=== PATIENT | male | born 1975 | race Caucasian/White ===

== ENCOUNTER 2016-08-21 07:57 | Emergency (ER) | payer MEDICAID, OTHER ==
--- NOTE | 2016-08-21 08:23 | ER Document Report ---
ED GI/ - General TRAVEL OUTSIDE OF THE [place] IN LAST 30 DAYS: No <NORIS BLOUNT - Last Filed: 08/21/16 08:23> <BARBIE VALDIVIA - Last Filed: 08/21/16 11:26> - General Chief Complaint: Urinary Frequency Stated Complaint: URINARY SYMPTOMS Time Seen by Provider: 08/21/16 08:23 - HPI Notes: 08/21/16 08:57 Patient is a 41-year-old male presents to the ED complaining of bladder pressure , urinary frequency, voiding small amounts that began this morning. He is still eating and drinking without any problems. He is having regular bowel movements. He has not had any burning, hematuria, discharge, flank pain. His last sexual activity was 3 years ago. Denies any fever, URI, sore throat, chest pain, palpitations, syncope, shortness of breath, cough, wheeze, dyspnea, abdominal pain, nausea, vomiting, diarrhea, rash. Denies recent illness. He takes Prozac and lisinopril daily. He is allergic to penicillins because of swelling and respiratory compromise. No previous issues or surgeries. ( BARBIE VALDIVIA) - Related Data Allergies/Adverse Reactions: diazepam [From Valium] Allergy (Verified 11/05/14 20:31) anger Penicillins Allergy (Verified 11/05/14 20:31) Anaphylaxis droperidol [Droperidol] Adverse Reaction (Verified 11/05/14 20:31) Change in behavior Past Medical History - Social History Smoking Status: Current Every Day Smoker Chew tobacco use (# tins/day): No Frequency of alcohol use: None Drug Abuse: None Family History: CAD - grandfather of chf at age 47., DM, Other - PENICILLIN ALLERGY. PT HAS HAD AMOXIL W/O PROBLEMS. Patient has suicidal ideation: No Patient has homicidal ideation: No Pulmonary Medical History: Reports: Hx Pneumonia Renal/ Medical History: Denies: Hx Peritoneal Dialysis Musculoskeltal Medical History: Reports Hx Musculoskeletal Deformity, Reports Hx Musculoskeletal Trauma Psychiatric Medical History: Reports: Hx Bipolar Disorder, Hx Depression Past Surgical History: Reports: Hx Appendectomy, Hx Orthopedic Surgery - L knee , Hx Tonsillectomy - Immunizations Immunizations up to date: Yes Hx Diphtheria, Pertussis, Tetanus Vaccination: Yes - 2009 <NORIS BLOUNT - Last Filed: 08/21/16 08:23> - Social History Smoking Status: Unknown if Ever Smoked <BARBIE VALDIVIA - Last Filed: 08/21/16 11:26> Review of Systems <NORIS BLOUNT - Last Filed: 08/21/16 08:23> <SHEABARBIE - Last Filed: 08/21/16 11:26> - Review of Systems Notes: REVIEW OF SYSTEMS: CONSTITUTIONAL : Denies fever, chills, or sweats. Denies recent illness. EENT: Denies eye, ear, throat, or mouth pain or symptoms. Denies nasal or sinus congestion or discharge. Denies throat, tongue, or mouth swelling or difficulty swallowing. CARDIOVASCULAR: Denies chest pain. Denies palpitations or racing or irregular heart beat. Denies ankle edema. RESPIRATORY: Denies cough, cold, or chest congestion. Denies shortness of breath, difficulty breathing, or wheezing. GASTROINTESTINAL: Denies abdominal pain or distention. Denies nausea, vomiting , or diarrhea. Denies blood in vomitus, stools, or per rectum. Denies black, tarry stools. Denies constipation. GENITOURINARY: see hpi MUSCULOSKELETAL: Denies back or neck pain or stiffness. Denies joint pain or swelling. SKIN: Denies rash, lesions or sores. NEUROLOGICAL: denies SCHWARTZ ALL OTHER SYSTEMS REVIEWED AND NEGATIVE. Dictation was performed using [employer] voice recognition software (BARBIE VALDIVIA) Physical Exam <NORIS BLOUNT - Last Filed: 08/21/16 08:23> <SHEABARBIE - Last Filed: 08/21/16 11:26> - Vital signs Vitals: Temp Pulse Resp BP Pulse Ox 97.9 F 81 14 119/82 100 08/21/16 08:02 08/21/16 08:02 08/21/16 08:02 08/21/16 08:02 08/21/16 08:02 Notes: PHYSICAL EXAMINATION: GENERAL: Well-appearing, well-nourished and in no acute distress. ENT: oropharynx clear without exudates. No tonsilar hypertrophy or erythema. NECK: Normal range of motion, supple without lymphadenopathy. No rigidity. LUNGS: Breath sounds clear to auscultation bilaterally and equal. No wheezes rales or rhonchi. HEART: Regular rate and rhythm without murmurs, rubs, gallops. ABDOMEN: Soft, nontender, nondistended abdomen. No guarding, no rebound. No masses appreciated. Normal bowel sounds present. No CVA tenderness bilaterally. KAREN negative for any prostate tenderness/bogginess/mass. No pulsatile mass. Extremities: No cyanosis, clubbing, or edema b/l. Peripheral pulses 2+. Capillary refill less than 3 seconds. NEUROLOGICAL:Normal speech, normal gait. Normal sensory, motor exams PSYCH: Normal mood, normal affect. SKIN: Warm, Dry, normal turgor, no rashes or lesions noted. (BARBIE VALDIVIA) Course <NORIS BLOUNT - Last Filed: 08/21/16 08:23> - Laboratory Result Diagrams: 08/21/16 09:40 08/21/16 09:40 <BARBIE VALDIVIA - Last Filed: 08/21/16 11:26> - Re-evaluation Re-evalutation: 08/21/16 09:02 Pt is an afebrile, well-hydrated, 41yo male who presents with urinary frequency NOS. Vitals are stable. PE otherwise unremarkable. UA showed glucose. Urine GC/Chlam negative. CBC, CMP, and accucheck were unremarkable. 1L NS given today. Pt states symptoms have improved and he is not urinating as often. Advised to avoid high amounts of potassium/calcium in diet (very mildly elevated - see labs). Conservative measures for symptoms as reviewed. Recheck with PCM in 2-3 days, consider consult with Urology. Return to the ED with any worsening /concerning symptoms. Pt in agreement. (BARBIE VALDIVIA) - Vital Signs Vital signs: Temp Pulse Resp BP Pulse Ox 97.9 F 81 14 119/82 100 08/21/16 08:02 08/21/16 08:02 08/21/16 08:02 08/21/16 08:02 08/21/16 08:02 - Laboratory Laboratory results interpreted by me: 08/21/16 08/21/16 08:34 09:40 Potassium 5.2 H Glucose 74 L Calcium 10.3 H Urine Glucose (UA) >=500 H Urine Ascorbic Acid 20 H Discharge <NORIS BLOUNT - Last Filed: 08/21/16 08:23> <BARBIE VALDIVIA - Last Filed: 08/21/16 11:26> - Discharge Clinical Impression: Urinary frequency Condition: Stable Disposition: HOME, SELF-CARE Additional Instructions: Push fluids Tylenol/ibuprofen as needed F/u with your PCM in 2-3 days for a recheck Consider consult with a Urologist for ongoing/worsening symptoms. Return to the ED with any worsening symptoms and/or development of fever, headache, chest pain, palpitations, syncope, shortness of breath, trouble breathing, abdominal pain, n/v/d, blood in stool/urine, urinary retention, muscle weakness/paralysis, or other worsening symptoms that are concerning to you. Referrals: JACLYN RENAE DO [Primary Care Provider] - Follow up as needed
[2016-08-21 08:58] LABS: APPEARANCE,URINE CLOUDY; BILIRUBIN,URINE NEGATIVE (NEGATIVE); GLUCOSE, URINE >=500 mg/dL (NEGATIVE); KETONES,URINE NEGATIVE (NEGATIVE); LEUKOCYTE ESTERASE,URINE NEGATIVE (NEGATIVE); NITRITE,URINE NEGATIVE (NEGATIVE); PROTEIN,URINE NEGATIVE (NEGATIVE); URINE SPECIFIC GRAVITY 1.007; UROBILINOGEN,URINE NEGATIVE mg/dL (<2.0)
[2016-08-21] MEDS ORDERED: NORMAL SALINE 1000 ML 1,000 ML IV ONE (09:24)
[2016-08-21 10:03] LABS: ABSOLUTE BASOPHILS # (AUTO) 0.1 10^3/uL (0.0-0.2); ABSOLUTE EOSINOPHILS # (AUTO) 0.1 10^3/uL (0.0-0.6); ABSOLUTE LYMPHOCYTES (AUTO) 1.7 10^3/uL (0.5-4.7); ABSOLUTE MONOCYTES (AUTO) 0.7 10^3/uL (0.1-1.4); ABSOLUTE NEUT (AUTO) 5.2 10^3/uL (1.7-8.2); BASOPHILS % (AUTO) 1.2 % (0-2); EOSINOPHILS % (AUTO) 1.5 % (0-6); HEMATOCRIT 45.5 % (37.9-51.0); HEMOGLOBIN 15.1 g/dL (13.5-17.0); HGB HCT DIFFERENCE -0.2; LYMPHOCYTES % (AUTO) 21.5 % (13-45); MEAN CORPUSCULAR HEMOGLOBIN 28.7 pg (27.0-33.4); MEAN CORPUSCULAR HGB CONC 33.1 g/dL (32.0-36.0); MEAN CORPUSCULAR VOLUME 87 fl (80-97); MONOCYTES % (AUTO) 8.8 % (3-13); RED BLOOD COUNT 5.24 10^6/uL (4.35-5.55); RED CELL DISTRIBUTION WIDTH 13.2 % (11.5-14.0); WHITE BLOOD COUNT 7.8 10^3/uL (4.0-10.5)
[2016-08-21 10:20] LABS: ALANINE AMINOTRANSFERASE 37 U/L (21-72); ALBUMIN 4.9 g/dL (3.5-5.0); ALKALINE PHOSPHATASE 65 U/L (38-126); ANION GAP 12 (5-19); ASPARTATE AMINO TRANSFERASE 28 U/L (17-59); BILIRUBIN,DIRECT 0.3 mg/dL (0.0-0.4); BILIRUBIN,TOTAL 0.5 mg/dL (0.2-1.3); BLOOD UREA NITROGEN 14 mg/dL (7-20); CALCIUM 10.3 mg/dL (8.4-10.2); CARBON DIOXIDE 26 mmol/L (22-30); CHLORIDE 104 mmol/L (98-107); CREATININE RESULT 0.88 mg/dL (0.52-1.25); GLUCOSE 74 mg/dL (75-110); POTASSIUM 5.2 mmol/L (3.6-5.0); SODIUM 141.6 mmol/L (137-145); TOTAL PROTEIN 7.8 g/dL (6.3-8.2)
[2016-08-21 10:28] LABS: CHLAM PCR NOT DETECTED (NOT DETECT)
[2016-08-21 11:43] VITALS: BP 108/70
== END 2016-08-21 11:34 | disposition home or self-care (01) ==
LOC: ER 07:57
DX: R35.0 Frequency of micturition (principal); F17.200 Nicotine dependence, unspecified, uncomplicated
CPT/HCPCS: 99283; 36415; 82962; 85025; 80053; 81001; 87491; 87591; J7030

== ENCOUNTER 2017-02-09 09:28 | Emergency (ER) | payer OTHER ==
[2017-02-09 10:07] LABS: ABSOLUTE BASOPHILS # (AUTO) 0.1 10^3/uL (0.0-0.2); ABSOLUTE EOSINOPHILS # (AUTO) 0.1 10^3/uL (0.0-0.6); ABSOLUTE LYMPHOCYTES (AUTO) 1.6 10^3/uL (0.5-4.7); ABSOLUTE MONOCYTES (AUTO) 0.6 10^3/uL (0.1-1.4); ABSOLUTE NEUT (AUTO) 4.7 10^3/uL (1.7-8.2); EOSINOPHILS % (AUTO) 2.1 % (0-6); HEMATOCRIT 45.8 % (37.9-51.0); HEMOGLOBIN 15.4 g/dL (13.5-17.0); HGB HCT DIFFERENCE 0.4; LYMPHOCYTES % (AUTO) 22.4 % (13-45); MEAN CORPUSCULAR HEMOGLOBIN 29.2 pg (27.0-33.4); MEAN CORPUSCULAR HGB CONC 33.8 g/dL (32.0-36.0); MEAN CORPUSCULAR VOLUME 87 fl (80-97); MONOCYTES % (AUTO) 8.4 % (3-13); RED BLOOD COUNT 5.29 10^6/uL (4.35-5.55); SEGMENTED NEUTROPHILS % (AUTO) 66.1 % (42-78); WHITE BLOOD COUNT 7.1 10^3/uL (4.0-10.5)
[2017-02-09] MEDS ORDERED: METOPROLOL TARTRATE 25 MG TABLET PO ONE (10:20)
--- NOTE | 2017-02-09 10:20 | ER Document Report ---
ED General - General Chief Complaint: Chest Pain Stated Complaint: HEADACHE, POSSIBLE PALPITATIONS Time Seen by Provider: 02/09/17 10:04 Mode of Arrival: Ambulatory Information source: Patient Notes: This is a 41-year-old man with a history of hypertension, depression, bipolar affective disorder and PTSD. He has been evaluated by cardiology in the past for palpitations and presents to the ER with an increase in palpitations over the last several days. The patient has previously been on lisinopril but is out for the past month. His next appointment at the [facility] is in March. He has had a stress test before (which was reported as normal) and a Holter showing sinus tachycardia. He does report that he drinks a lot of energy drinks as well as blue Mountain Dew (a lot of caffeine), monsters and red ball. He only smokes 1-2 cigarettes a day. He does not drink alcohol. He denies any drug use. TRAVEL OUTSIDE OF THE [place] IN LAST 30 DAYS: No - HPI Onset: Last week Onset/Duration: Gradual Quality of pain: No pain Severity: None Pain Level: Denies Associated symptoms: denies: Chest pain, Fever, Shortness of breath Exacerbated by: Denies Relieved by: Denies Similar symptoms previously: Yes Recently seen / treated by doctor: No - Related Data Allergies/Adverse Reactions: diazepam [From Valium] Allergy (Verified 02/09/17 09:31) anger Penicillins Allergy (Verified 02/09/17 09:31) Anaphylaxis droperidol [Droperidol] Adverse Reaction (Verified 02/09/17 09:31) Change in behavior Past Medical History - General Information source: Patient - Social History Smoking Status: Current Some Day Smoker Cigarette use (# per day): Yes - Only 1-2 cigarettes a day Chew tobacco use (# tins/day): No Frequency of alcohol use: None Drug Abuse: None Lives with: Family Family History: CAD - grandfather of chf at age 47., DM, Other - PENICILLIN ALLERGY. PT HAS HAD AMOXIL W/O PROBLEMS. Patient has suicidal ideation: No Patient has homicidal ideation: No - Past Medical History Cardiac Medical History: Reports: Hx Hypertension Pulmonary Medical History: Reports: Hx Pneumonia Renal/ Medical History: Denies: Hx Peritoneal Dialysis Musculoskeltal Medical History: Reports Hx Musculoskeletal Deformity, Reports Hx Musculoskeletal Trauma Psychiatric Medical History: Reports: Hx Bipolar Disorder, Hx Depression Past Surgical History: Reports: Hx Appendectomy, Hx Orthopedic Surgery - L knee , Hx Tonsillectomy - Immunizations Immunizations up to date: Yes Hx Diphtheria, Pertussis, Tetanus Vaccination: Yes - 2009 Review of Systems - Review of Systems Constitutional: denies: Chills, Fever EENT: No symptoms reported Cardiovascular: See HPI Respiratory: No symptoms reported Gastrointestinal: No symptoms reported Genitourinary: No symptoms reported Male Genitourinary: No symptoms reported Musculoskeletal: No symptoms reported Skin: No symptoms reported Hematologic/Lymphatic: No symptoms reported Neurological/Psychological: No symptoms reported Physical Exam - Vital signs Vitals: Temp Pulse Resp BP Pulse Ox 98.6 F 84 16 130/93 H 99 02/09/17 09:41 02/09/17 09:41 02/09/17 09:41 02/09/17 09:41 02/09/17 09:41 Notes: Physical exam: GENERAL: 41-year-old man, alert and oriented 3, no acute distress HEAD: Atraumatic, normocephalic. EYES: Pupils equal round and reactive to light, extraocular movements intact, sclera anicteric, conjunctiva are normal. ENT: TMs normal, nares patent, oropharynx clear without exudates. Moist mucous membranes. NECK: Normal range of motion, supple without obvious mass or JVD. LUNGS: Breath sounds clear to auscultation bilaterally and equal. No wheezes rales or rhonchi. HEART: Regular rate and rhythm without murmurs, rubs or gallops. ABDOMEN: Soft, normoactive bowel sounds. No tenderness to palpation. No guarding, no rebound. No masses appreciated. EXTREMITIES: Normal range of motion, no pitting or edema. No clubbing or cyanosis. NEUROLOGICAL: Cranial nerves II through XII grossly intact. Normal speech, moving all extremities. PSYCH: Normal mood, normal affect. SKIN: Warm, Dry, normal turgor, no rashes or lesions noted. Course - Vital Signs Vital signs: Temp Pulse Resp BP Pulse Ox 98.6 F 84 20 121/76 96 02/09/17 09:41 02/09/17 09:41 02/09/17 12:02 02/09/17 12:02 02/09/17 12:02 - Laboratory Result Diagrams: 02/09/17 09:56 02/09/17 09:56 Laboratory results interpreted by me: 02/09/17 09:56 Sodium 146.4 H - Diagnostic Test Radiology reviewed: Image reviewed, Reports reviewed - Test x-ray shows no infiltrates or effusions - EKG Interpretation by Me Rate: Normal Rhythm: NSR - EKG shows normal sinus rhythm with a ventricular rate of 68, no acute ST-T wave changes Discharge - Discharge Clinical Impression: Palpitations Condition: Stable Disposition: HOME, SELF-CARE Instructions: Palpitations (Irregular or Rapid Heartrate) ([facility]) Additional Instructions: Thank you for choosing [facility] for your care. The examination and treatment you have received in the Emergency Department today has been rendered on an emergency basis only and is not intended to be a substitute for complete medical care. You should contact your follow-up physician as it is important that he or she examine you for any new or remaining problems. If given a copy of any lab tests or radiology reports, please bring them with you when you see your physician. If your problem worsens or new symptoms appear and you are unable to arrange prompt follow-up care, return to the Emergency Department. Specific signs to look out for: Feeling faint, worsening palpitations or any concerns or getting worse. Any other instructions: By the metoprolol: Half tablet twice daily. Follow-up with your primary care physician as planned in March. Bring a copy of today's labs and x-ray report with you when you go. As we discussed, trying cut down on the caffeine intake. Prescriptions: Metoprolol Tartrate [Lopressor 25 mg Tablet] 12.5 mg PO Q12 #90 tab Referrals: JACLYN RENAE DO [Primary Care Provider] - Follow up as needed
[2017-02-09 10:41] LABS: ALANINE AMINOTRANSFERASE 57 U/L (21-72); ALKALINE PHOSPHATASE 67 U/L (38-126); ANION GAP 13 (5-19); ASPARTATE AMINO TRANSFERASE 27 U/L (17-59); BILIRUBIN,DIRECT 0.2 mg/dL (0.0-0.4); BILIRUBIN,TOTAL 0.4 mg/dL (0.2-1.3); BLOOD UREA NITROGEN 17 mg/dL (7-20); CALCIUM 10.1 mg/dL (8.4-10.2); CARBON DIOXIDE 26 mmol/L (22-30); CHLORIDE 107 mmol/L (98-107); CREATINE KINASE 140 U/L (55-170); CREATININE RESULT 0.95 mg/dL (0.52-1.25); GLUCOSE 99 mg/dL (75-110); POTASSIUM 4.9 mmol/L (3.6-5.0); SODIUM 146.4 mmol/L (137-145); TOTAL PROTEIN 7.5 g/dL (6.3-8.2)
[2017-02-09 10:53] LABS: CREATINE KINASE MB 1.44 ng/mL (<4.55)
[2017-02-09 10:54] LABS: TROPONIN I < 0.012 ng/mL
[2017-02-09 11:12] LABS: THYROID STIMULATING HORMONE 1.39 uIU/mL (0.47-4.68)
--- NOTE | 2017-02-09 11:30 | RADIOLOGY REPORT (SQ) ---
EXAM DESCRIPTION: CHEST PA/LAT COMPLETED DATE/TIME: 02/09/2017 10:54 am REASON FOR STUDY: palpitations COMPARISON: Two-view chest 11/05/2014 EXAM PARAMETERS: NUMBER OF VIEWS: two views TECHNIQUE: Digital Frontal and Lateral radiographic views of the chest acquired. RADIATION DOSE: NA LIMITATIONS: EKG leads over the chest FINDINGS: LUNGS AND PLEURA: No opacities, masses or pneumothorax. No pleural effusion. MEDIASTINUM AND HILAR STRUCTURES: No masses or contour abnormalities. HEART AND VASCULAR STRUCTURES: Heart normal size. No evidence for failure. BONES: No acute findings. HARDWARE: None in the chest. OTHER: No other significant finding. IMPRESSION: NO SIGNIFICANT RADIOGRAPHIC FINDING IN THE CHEST. TECHNICAL DOCUMENTATION: JOB ID: [id number] Where- All Rights Reserved
--- NOTE | 2017-02-09 11:45 | EKG REPORT ---
SEVERITY:- NORMAL ECG - SINUS RHYTHM : Confirmed by: Ramona Orosco 09-Feb-2017 11:45:13
[2017-02-09 12:08] VITALS: BP 121/76
== END 2017-02-09 12:25 | disposition home or self-care (01) ==
LOC: ER 09:28
DX: R00.2 Palpitations (principal); R07.9 Chest pain, unspecified; R51 Headache; I10 Essential (primary) hypertension; F32.9 Major depressive disorder, single episode, unspecified; F31.9 Bipolar disorder, unspecified; F43.10 Post-traumatic stress disorder, unspecified; Z79.899 Other long term (current) drug therapy; F17.210 Nicotine dependence, cigarettes, uncomplicated
CPT/HCPCS: 36415; 71020; 80053; 82550; 82553; 84439; 84443; 84484; 85025; 93005; 93010; 99285

== ENCOUNTER 2017-05-20 10:38 | Emergency (ER) | payer OTHER ==
[2017-05-20] MEDS ORDERED: METOCLOPRAMIDE HCL INJ/PF 10 MG/2 ML SDV IV ONE (11:31)
[2017-05-20] MEDS ORDERED: DIPHENHYDRAMINE HCL 50 MG/ML VIAL IV ONE (11:31)
[2017-05-20] MEDS ORDERED: NORMAL SALINE 1000 ML 1,000 ML IV ONE (11:32)
--- NOTE | 2017-05-20 11:33 | ER Document Report ---
ED Medical Screen (RME) - General Chief Complaint: Headache Stated Complaint: HEADACHE Time Seen by Provider: 05/20/17 11:27 Notes: RME DISCLOSURE I have seen this patient as part of a Rapid Medical Evaluation and, if applicable, placed any initially appropriate orders. The patient will be seen and fully evaluated, including a full history and physical exam, by a provider ( in Main ED or Fast Track) when a room becomes available. 41-year-old male here with complaints of bilateral headache lightheadedness ongoing for the past 1 hour. Headache was gradual onset progressively worsening. It is worse with standing up but not worse with light or sound exposure. He denies any numbness tingling weakness vision change nausea vomiting. He has not taken anything for the pain. TRAVEL OUTSIDE OF THE [place] IN LAST 30 DAYS: No - Related Data Allergies/Adverse Reactions: diazepam [From Valium] Allergy (Verified 05/20/17 10:41) anger Penicillins Allergy (Verified 05/20/17 10:41) Anaphylaxis droperidol [Droperidol] Adverse Reaction (Verified 05/20/17 10:41) Change in behavior Past Medical History - Past Medical History Cardiac Medical History: Reports: Hx Hypertension Pulmonary Medical History: Reports: Hx Pneumonia Renal/ Medical History: Denies: Hx Peritoneal Dialysis Musculoskeltal Medical History: Reports Hx Musculoskeletal Deformity, Reports Hx Musculoskeletal Trauma Psychiatric Medical History: Reports: Hx Bipolar Disorder, Hx Depression Past Surgical History: Reports: Hx Appendectomy, Hx Orthopedic Surgery - L knee , Hx Tonsillectomy - Immunizations Immunizations up to date: Yes Hx Diphtheria, Pertussis, Tetanus Vaccination: Yes - 2009 Physical Exam - Vital signs Vitals: Temp Pulse Resp BP Pulse Ox 98.2 F 69 16 130/91 H 98 05/20/17 10:44 05/20/17 10:44 05/20/17 10:44 05/20/17 10:44 05/20/17 10:44 Course - Vital Signs Vital signs: Temp Pulse Resp BP Pulse Ox 98.2 F 69 16 130/91 H 98 05/20/17 10:44 05/20/17 10:44 05/20/17 10:44 05/20/17 10:44 05/20/17 10:44
--- NOTE | 2017-05-20 12:19 | RADIOLOGY REPORT (SQ) ---
EXAM DESCRIPTION: CT HEAD WITHOUT COMPLETED DATE/TIME: 05/20/2017 12:12 pm REASON FOR STUDY: headache lightheaded; eval bleed tumor COMPARISON: None. TECHNIQUE: Axial images acquired through the brain without intravenous contrast. Images reviewed wi th bone, brain and subdural windows. Images stored on PACS. All CT scanners at this facility use dose modulation, iterative reconstruction, and/or weight based d osing when appropriate to reduce radiation dose to as low as reasonably achievable (ALARA). [facility]: Dose Right [facility]: CareDose [facility]: Dose Right [facility]: Teradose 4D [facility]: R&V RADIATION DOSE: CT Rad equipment meets quality standard of care and radiation dose reduction techniq ues were employed. CTDIvol: 64.6 mGy. DLP: 1163 mGy-cm. mGy. LIMITATIONS: None. FINDINGS: VENTRICLES: Normal size and contour. CEREBRUM: No masses. No hemorrhage. No midline shift. No evidence for acute infarction. Normal gra y/white matter differentiation. No areas of low density in the white matter. CEREBELLUM: No masses. No hemorrhage. No alteration of density. No evidence for acute infarction. EXTRAAXIAL SPACES: No fluid collections. No masses. ORBITS AND GLOBE: No intra- or extraconal masses. Normal contour of globe without masses. CALVARIUM: No fracture. PARANASAL SINUSES: Fluid left maxillary sinus. SOFT TISSUES: No mass or hematoma. OTHER: No other significant finding. IMPRESSION: NORMAL BRAIN CT WITHOUT CONTRAST. EVIDENCE OF ACUTE STROKE: NO. COMMENT: Quality ID # [id number]: Final reports with documentation of one or more dose reduction techniques (e.g., Automated exposure control, adjustment of the mA and/or kV according to patient size, use of iterative reconstruction technique) TECHNICAL DOCUMENTATION: JOB ID: [id number] [employer]- All Rights Reserved Reading location - IP/workstation name: [email or web address]-[email or web address]
--- NOTE | 2017-05-20 12:55 | ER Document Report ---
ED Headache - General Chief Complaint: Headache Stated Complaint: HEADACHE Time Seen by Provider: 05/20/17 11:27 Mode of Arrival: Ambulatory Information source: Patient TRAVEL OUTSIDE OF THE [place] IN LAST 30 DAYS: No - HPI Patient complains to provider of: Headache Notes: Patient is here with complaints of right-sided headache. States that it started approximately 20 minutes prior to his arrival here. Was not a sudden onset thunderclap type headache. It gradually worsened over time. He has a history of headaches in the past. He is on a blood thinners. He denies any recent head injuries or falls. He denies any associated nausea, vomiting, diarrhea. No unilateral numbness, tingling, weakness. States that pain was worse with light. He denies any chest pain or shortness of breath. No abdominal pain. No rash. No neck stiffness. No fever. States he was felt a little lightheaded with it as well. No other complaints at this time. - Related Data Allergies/Adverse Reactions: diazepam [From Valium] Allergy (Verified 05/20/17 10:41) anger Penicillins Allergy (Verified 05/20/17 10:41) Anaphylaxis droperidol [Droperidol] Adverse Reaction (Verified 05/20/17 10:41) Change in behavior Past Medical History - Social History Smoking Status: Former Smoker Chew tobacco use (# tins/day): No Frequency of alcohol use: Rare Drug Abuse: None Family History: CAD - grandfather of chf at age 47., DM, Other - PENICILLIN ALLERGY. PT HAS HAD AMOXIL W/O PROBLEMS. Patient has suicidal ideation: No Patient has homicidal ideation: No - Past Medical History Cardiac Medical History: Reports: Hx Hypertension Pulmonary Medical History: Reports: Hx Pneumonia Renal/ Medical History: Denies: Hx Peritoneal Dialysis Musculoskeltal Medical History: Reports Hx Musculoskeletal Deformity, Reports Hx Musculoskeletal Trauma Psychiatric Medical History: Reports: Hx Bipolar Disorder, Hx Depression Past Surgical History: Reports: Hx Appendectomy, Hx Orthopedic Surgery - L knee , Hx Tonsillectomy - Immunizations Immunizations up to date: Yes Hx Diphtheria, Pertussis, Tetanus Vaccination: Yes - 2009 Review of Systems - Review of Systems -: Yes All other systems reviewed and negative Physical Exam - Vital signs Vitals: Temp Pulse Resp BP Pulse Ox 98.2 F 69 16 130/91 H 98 05/20/17 10:44 03/27/18 10:44 05/20/17 10:44 05/20/17 10:44 05/20/17 10:44 - Notes Notes: GENERAL: alert, cooperative, nontoxic, no distress. HEAD: normocephalic, atraumatic EYES: conjunctiva pink without discharge, no external redness or swelling. Pupils are equal, round, reactive to light. EARS: no external swelling, no external redness NOSE: atraumatic, no external swelling MOUTH/THROAT: mucous membranes moist and pink, posterior pharynx without erythema, swelling, exudate. No trismus or drooling. NECK: soft, supple, full range of motion, no meningismus. CHEST: no distress, lungs clear and equal throughout. No wheezing, rales, rhonchi. CARDIAC: regular rate and rhythm, no murmur, normal capillary refill, normal pulses. No peripheral edema noted. BACK: full range of motion, no CVA tenderness. EXTREMITIES: full range of motion of all extremities. No redness, no swelling. NEURO: alert and oriented x 3, cranial nerves II through XII are grossly intact. Upper and lower extremities are equal throughout. Normal sensation. No focal deficits, full range of motion of all extremities. normal finger to nose. PYSCH: appropriate mood, affect. Patient is cooperative. SKIN: pink, warm, dry, no rash. Course - Re-evaluation Re-evalutation: 05/20/17 12:51 Patient is nontoxic appearing with stable vitals. Here with complaints of right -sided headache. It was not a sudden onset, thunderclap headache. He is on no blood thinners. He has a history of headaches. No sign of subarachnoid hemorrhage or meningitis. He has no neck stiffness. Is a completely normal neurological exam. CT the brain shows no acute abnormality. This is within 6 hours of his headache onset, therefore the likelihood of a missed subarachnoid hemorrhage is extremely low and no further testing is required. There is low suspicion for subarachnoid hemorrhage as well, as this was not a sudden onset thunderclap type headache. The patient was given fluids, Benadryl, Reglan and states that his headache is significantly improved and he is ready to go home. Patient can be discharged home with instructions to drink plenty of fluids. Follow-up with his doctor if not better in the next couple of days, sooner for worsening pain, high fever, numbness, tingling, weakness, neck stiffness, or for any further concerns. The patient is noted to have elevated blood pressure during today's emergency department visit. The patient was informed of this finding. The patient was instructed that this may be related to pre-hypertension and requires further evaluation with a primary care provider. The patient has no hypertensive symptoms at this time. The patient's emergency department workup and current diagnosis were explained to the patient and or family. Follow-up instructions were provided. Medications if prescribed were discussed. Instructions for when to return to the emergency department including specific worrisome symptoms were discussed with the patient and/or family. - Vital Signs Vital signs: Temp Pulse Resp BP Pulse Ox 98.2 F 69 16 130/91 H 98 05/20/17 10:44 05/20/17 10:44 05/20/17 10:44 05/20/17 10:44 05/20/17 10:44 - Diagnostic Test Radiology reviewed: Image reviewed, Reports reviewed - Head CT negative Discharge - Discharge Clinical Impression: Headache Qualifiers: Headache type: unspecified Headache chronicity pattern: acute headache Intractability: not intractable Qualified Code(s): R51 - Headache Condition: Stable Disposition: HOME, SELF-CARE Instructions: Headache ([facility]) Additional Instructions: Follow-up with your doctor if not better in the next 3 days, sooner for increasing pain, fever, numbness, tingling, weakness, blurred or loss vision, persistent vomiting, neck stiffness, or for any further concerns. Your blood pressure was elevated during today's visit. Have this rechecked with your doctor. Forms: Elevated Blood Pressure, Smoking Cessation Education Referrals: [facility] [Provider Group] - Follow up as needed
[2017-05-20 13:15] VITALS: BP 115/81
== END 2017-05-20 13:15 | disposition home or self-care (01) ==
LOC: ER 10:38
DX: R51 Headache (principal); R42 Dizziness and giddiness; H53.149 Visual discomfort, unspecified; I10 Essential (primary) hypertension; Z88.8 Allergy status to other drugs, medicaments and biological substances; Z87.892 Personal history of anaphylaxis; Z88.0 Allergy status to penicillin; Z87.891 Personal history of nicotine dependence
CPT/HCPCS: 99284; 96361; 96374; 96375; 70450; J1200; J2765; J7030